=== PATIENT | female | born 1980 | race Caucasian/White ===

== ENCOUNTER 2017-05-20 12:30 | Day surgery (SDC) | payer BC, OTHER ==
[~2017-05-20] VITALS: Ht 154.9 cm; Wt 92.2 kg
[~2017-05-20 12:30] MED LIST: LABE100T39 PO; PRENAT PO
[2017-05-20] MEDS ORDERED: METOPROLOL (13:36)
[2017-05-20] MEDS ORDERED: LIDOCAINE 2% (SDV) 5 ML INJ ONE (14:17)
[2017-05-20] MEDS ORDERED: PROPOFOL 40 ML ONE (14:17)
--- NOTE | 2017-05-20 14:46 | OPPN ---
Date/Time of Note Date/Time of Note DATE: 05/20/17 TIME: 14:44 Operative Report Preoperative Diagnosis Chronic diarrhea History of rectal bleeding Postoperative Diagnosis Internal hemorrhoid Operation/Procedure Performed Colonoscopy and biopsy Provider: SONDRA GARBER MD Anesthesia Type: MAC Estimated blood loss: none Transfusion Required: no Specimens Random colon biopsy Grafts/Implants: none Complications: no SONDRA GARBER MD May 20, 2017 14:46
[2017-05-20 15:07] VITALS: BP 129/84; RESP 14
--- NOTE | 2017-05-20 23:02 | GILP ---
DATE OF PROCEDURE: 05/20/2017 PROCEDURE PERFORMED: Colonoscopy and biopsy. SURGEON: Benita Simms MD. PREOPERATIVE DIAGNOSES: 1. Chronic diarrhea. 2. History of rectal bleeding. POSTOPERATIVE DIAGNOSES: 1. Colonoscopy all the way to the cecum and into the terminal ilium. 2. Normal terminal ilium. 3. Random biopsies were taken to rule out microscopic colitis. 4. Internal hemorrhoids. INDICATIONS FOR PROCEDURE: Mrs. Teresa Vilchis is a 36-year-old female patient who had chronic diarrhea and history of rectal bleeding. The patient was scheduled for colonoscopy for further evaluation. The procedure and possible complications were well explained to the patient. She understood and consented to the procedure. DESCRIPTION OF PROCEDURE: Under the influence of anesthesia the colonoscope was carefully introduced into the rectum and under direct vision it was advanced all the way to the cecum, into the ileocecal valve and into the terminal ilium. Findings, the terminal ilium was normal. The colonic mucosa was normal. Random biopsies were taken to rule out microscopic colitis. The patient was noted to have internal hemorrhoids. She tolerated the procedure very well and there was no complication from the procedure. At the end of the procedure she was awake with stable vital signs and she was discharged home in the care of her family. IMPRESSION: Please see postoperative diagnoses. PLAN: 1. Bentyl 10 mg p.o. t.i.d. p.r.n. for diarrhea. 2. Await histopathology report. Dictated By: MD GEREMIAS Tafoya/reji/sasha /Document#: [id number] CC: Benita Simms MD;*[facility]*
== END 2017-05-20 15:23 | disposition home or self-care (01) ==
LOC: GIL 12:30
PROVIDERS: ATTEND Internal Medicine Gastroenterology
DX: K64.8 Other hemorrhoids (principal); I10 Essential (primary) hypertension; J45.909 Unspecified asthma, uncomplicated; E66.9 Obesity, unspecified; Z68.38 Body mass index [BMI] 38.0-38.9, adult
CPT/HCPCS: 45380; 84703; 88305; Z7610